=== PATIENT | female | born 1995 | race Two or more races ===

== ENCOUNTER 2016-11-01 09:43 | Emergency (ER) | payer BC, MEDICAID ==
[~2016-11-01] VITALS: Ht 165.1 cm; Wt 102.1 kg
[~2016-11-01 09:43] MED LIST: CATAPRES0.1 MG ORAL; CIPRO500 MG PO; CONCERTA18 MG PO; RISPERDAL1 MG PO; SERTRALINE HCL50 MG ORAL
[2016-11-01 10:09] VITALS: BP 124/87
[2016-11-01] MEDS ORDERED: Lidocaine 1% MPF 10mg/ml 5ml ONE (10:51)
[2016-11-01] MEDS ORDERED: Lidocaine 1% 10mg/ml/Epi 0.005mg/ml 30ml vial INJ ONE (10:56)
--- NOTE | 2016-11-01 10:57 | Emergency Room Report ---
History of Present Illness General Chief Complaint: Skin Rash/Abscess Source: Patient Present Illness HPI 21YOF with ~1 week pain to inter-gluteal area, thinks she has an abscess. Had pain there previously, self-resolved. No previous abscesses. No history of DM. No fever/chills, pus drainage. Allergies: Coded Allergies: No Known Allergies (Unverified , 11/01/16) Patient History Past Medical History: none Past Surgical History: none Pertinent Family History: none Social History: Denies: alcohol use, drug use, smoking Last Menstrual Period: 10/18/16 Now: No Immunizations: UTD Reviewed Nursing Documentation: PMH: Agreed, PSxH: Agreed Nursing Documentation-PMH Hx Gastrointestinal Problems: Yes - GERD Review of Systems All Other Systems: negative except mentioned in HPI Physical Exam Vital Signs Date Time Temp Pulse Resp B/P Pulse Ox O2 Delivery O2 Flow Rate FiO2 11/01/16 09:50 97.0 92 16 124/87 98 Room Air Sp02 EP Interpretation: reviewed, normal General Appearance: normal inspection, well appearing, no apparent distress, alert, obese Head: atraumatic ENT: normal ENT inspection, hearing grossly normal, normal voice Neck: normal inspection, full range of motion, supple, no bony tend Respiratory: normal inspection, lungs clear, normal breath sounds, no respiratory distress, no retraction, no wheezing Cardiovascular #1: regular rate, rhythm, no edema Gastrointestinal: normal inspection, normal bowel sounds, non tender, soft, no guarding, no hernia Genitourinary: no CVA tenderness Musculoskeletal: normal inspection, back normal, normal range of motion, Jeremiah' s Sign negative Neurologic: normal inspection, alert, oriented x3, responsive, automotive parts interpreter III-XII nml as tested, motor strength/tone normal, speech normal Skin: normal inspection, normal color, other - 4cm fluctuance right inter- gluteal fold superior region Procedures Incision and Drainage Incision and Drainage : Consent: Verbal Blade Size: 11 I & D Procedure: betadine prep, sterile drapes applied, sterile dressing applied, gauze wick placed Wound Location: other - buttock Wound's Depth, Shape: superficial Wound Explored: clean Anesthesia: Lidocaine w/ Epi Splint Applied?: No Sling Applied?: No Patient Tolerated: Well Complications: None Progress significant 20cc drainage of foul-smelling purulent abscess packing placed Pressure bandage placed Medical Decision Making Diagnostic Impression: Primary Impression: Abscess ER Course S/p I&D in ED with packing No comorbidity so Abx unecessary Advised f/up in 2 days for packing removal DC home with analgesia Last Vital Signs Date Time Temp Pulse Resp B/P Pulse Ox O2 Delivery O2 Flow Rate FiO2 11/01/16 10:09 97.0 71 16 124/87 98 Room Air Status: improved Disposition: HOME, SELF-CARE Scripts Acetaminophen With Codeine (T#3) (TYLENOL #3 TAB*) Y Tab 1 TAB ORAL Q8H Y for For Pain for 7 Days, #20 TAB Prov: DEVON RHODES M.D. 11/01/16 Referrals: [facility],REFERRING (PCP) DEVON RHODES M.D. Nov 01, 2016 10:57
[2016-11-01] MEDS ORDERED: ACETAMINOPHEN-1 EAC1 ORAL (10:58)
[2016-11-01] MEDS ORDERED: Lidocaine 1% 10mg/ml/EPI 0.01mg/ml 50ml INJ ONE (11:00)
[2016-11-01] MEDS ORDERED: Oxycodone/Acetaminophen 5-325 ORAL ONE (11:00)
[2016-11-01 12:39] VITALS: BP 129/85
== END 2016-11-01 12:39 | disposition home or self-care (01) ==
LOC: EMR 10:32
DX: L02.212 Cutaneous abscess of back [any part, except buttock and flank] (principal); K21.9 Gastro-esophageal reflux disease without esophagitis
CPT/HCPCS: 10060

== ENCOUNTER 2016-11-03 11:15 | Emergency (ER) | payer MEDICAID ==
[~2016-11-03] VITALS: Ht 165.1 cm; Wt 102.1 kg
[~2016-11-03 11:15] MED LIST changes: +ACETAMINOPHEN-1 EAC1 ORAL
[2016-11-03 11:19] VITALS: BP 118/71
--- NOTE | 2016-11-03 11:50 | Emergency Room Report ---
History of Present Illness General Chief Complaint: Wound Recheck/Suture Removal Source: Patient Present Illness HPI Patient returns after I and D 11/02 gluteal area. No fevers. Pain decreased. Some drainage on dressing. Not on antibiotics. Allergies: Coded Allergies: No Known Allergies (Unverified , 11/01/16) Patient History Past Medical History: see triage record Social History Narrative Mom helping to change dressing Now: No Reviewed Nursing Documentation: PMH: Agreed, PSxH: Agreed Nursing Documentation-PMH Hx Gastrointestinal Problems: Yes - GERD Review of Systems Constitutional: Reports: see HPI Musculoskeletal: Denies: back pain, joint pain, muscle pain Skin: Reports: see HPI Neurological: Denies: numbness Physical Exam Vital Signs Date Time Temp Pulse Resp B/P Pulse Ox O2 Delivery O2 Flow Rate FiO2 11/03/16 11:19 98.4 86 20 118/71 100 Room Air Sp02 EP Interpretation: reviewed, normal General Appearance: well appearing, no apparent distress Head: normocephalic, atraumatic Eyes: bilateral eye PERRL, bilateral eye normal inspection ENT: hearing grossly normal, normal voice, moist mucus membranes Neck: full range of motion, supple Respiratory: no respiratory distress, speaking full sentences Musculoskeletal: back normal, digits/nails normal, gait/station normal, normal range of motion Neurologic: alert, normal gait, grossly normal Psychiatric: mood/affect normal Skin: other - abscess without erythema. Some pus on wick. Procedures Additional Procedure Procedure Narrative Betadiene cleaned. Wick removed. Replaced with second wick. Tolerated well. Medical Decision Making Diagnostic Impression: Primary Impression: Encounter for wound re-check Additional Impression: Drain replacement gluteal abscess ER Course Patient post I and D 11/02. No evidence of cellulitis. Here for re-eval. Wick replaced. Tolerated well. Patient stable for outpatient observation and treatment. Last Vital Signs Date Time Temp Pulse Resp B/P Pulse Ox O2 Delivery O2 Flow Rate FiO2 11/03/16 12:03 98.4 86 20 118/71 100 Room Air Status: improved Disposition: HOME, SELF-CARE Condition: Improved Scripts Bacitracin (Bacitracin) 28.4 Gm Oint...g. 1 APPLIC TOPIC BID, #10 GM Prov: Brandon Arambula M.D. 11/03/16 Referrals: [facility],REFERRING (PCP) Brandon Aarmbula M.D. 27, 2017 11:50
[2016-11-03] MEDS ORDERED: BACITRACIN15 GM TOPIC (11:51)
[2016-11-03 12:03] VITALS: BP 118/71
== END 2016-11-03 12:05 | disposition home or self-care (01) ==
LOC: EMR 11:40
DX: L02.31 Cutaneous abscess of buttock (principal); Z48.03 Encounter for change or removal of drains
CPT/HCPCS: 99282

== ENCOUNTER 2016-11-05 14:53 | Emergency (ER) | payer MEDICAID ==
[~2016-11-05] VITALS: Ht 162.6 cm; Wt 102.1 kg
[~2016-11-05 14:53] MED LIST changes: +BACITRACIN15 GM TOPIC
[2016-11-05 15:03] VITALS: BP 113/77
[2016-11-05 16:00] VITALS: BP 113/77
--- NOTE | 2016-11-05 22:30 | Emergency Room Report ---
History of Present Illness General Chief Complaint: General Complaint Source: Patient Present Illness HPI Pt was triaged and placed into waiting room. Pt. then left prior to being brought back into the Emergency department or seen by a provider. Allergies: Coded Allergies: No Known Allergies (Unverified , 11/01/16) Patient History Last Menstrual Period: 10/12/16 Now: No Nursing Documentation-[facility] Past Medical History: No History, Except For Hx Gastrointestinal Problems: Yes - GERD Physical Exam Vital Signs Date Time Temp Pulse Resp B/P Pulse Ox O2 Delivery O2 Flow Rate FiO2 11/05/16 15:03 98.1 73 18 113/77 100 Room Air Medical Decision Making PA Attestation Dr. Rodrigues is my supervising Physician whom patient management has been discussed with. Diagnostic Impression: Primary Impression: LWBS ER Course Pt was triaged and placed into waiting room. Pt. then left prior to being brought back into the Emergency department or seen by a provider. Last Vital Signs Date Time Temp Pulse Resp B/P Pulse Ox O2 Delivery O2 Flow Rate FiO2 11/05/16 16:00 98.1 73 18 113/77 100 Room Air Disposition: LEFT W/OUT BEING SEEN Condition: Unknown Referrals: [facility],REFERRING (PCP) Lazara Pruitt Nov 05, 2016 22:30
== END 2016-11-05 16:05 | disposition left against medical advice (07) ==
LOC: EMR 16:05
DX: Z48.00 Encounter for change or removal of nonsurgical wound dressing (principal); Z53.21 Procedure and treatment not carried out due to patient leaving prior to being seen by health care provider
CPT/HCPCS: 99281

== ENCOUNTER 2016-11-29 09:15 | Emergency (ER) | payer MEDICAID ==
[~2016-11-29] VITALS: Ht 165.1 cm; Wt 104.3 kg
[2016-11-29 09:20] VITALS: BP 106/77
[2016-11-29] MEDS ORDERED: NKM (09:25)
[2016-11-29] MEDS ORDERED: Oxycodone/Acetaminophen 5-325 ORAL ONE ×2 (09:45→10:30)
[2016-11-29] MEDS ORDERED: Lidocaine 1% 10mg/ml/EPI 0.01mg/ml 50ml INJ ONE (10:00)
[2016-11-29] MEDS ORDERED: Lidocaine 1% MPF 10mg/ml 5ml ONE (10:01)
[2016-11-29] MEDS ORDERED: Lidocaine 1% 10mg/ml/Epi 0.005mg/ml 30ml vial INJ ONE (10:03)
[2016-11-29] MEDS ORDERED: ACETAMINOPHEN-1 EAC1 ORAL (11:11)
[2016-11-29] MEDS ORDERED: KEFLEX500 MG ORAL (11:11)
[2016-11-29 11:18] VITALS: BP 106/77
--- NOTE | 2016-11-29 11:23 | Emergency Room Report ---
History of Present Illness General Chief Complaint: Skin Rash/Abscess Source: Patient Present Illness HPI 21YOF [employer] patient with recurrent right/mid cleft "abscess." I did I&D of large amount of pus here ~1month prior Completed Abx at home Didnt followup with PMD or general surgeon d/t insurance issue Recurrent abscess for 2 days, "broke open." Denies fever/chills Allergies: Coded Allergies: No Known Allergies (Unverified , 11/01/16) Patient History Past Medical History: none Past Surgical History: none Pertinent Family History: none Social History: Denies: alcohol use, drug use, smoking Last Menstrual Period: Two weeks ago Now: No Immunizations: UTD Reviewed Nursing Documentation: PMH: Agreed, PSxH: Agreed Nursing Documentation-PMH Past Medical History Deferred: Patient Unconscious Hx Gastrointestinal Problems: Yes - GERD History Of Psychiatric Problem: Yes - Bipolar; depression Review of Systems All Other Systems: negative except mentioned in HPI Physical Exam Vital Signs Date Time Temp Pulse Resp B/P Pulse Ox O2 Delivery O2 Flow Rate FiO2 11/29/16 09:20 97.9 103 18 106/77 99 Room Air Sp02 EP Interpretation: reviewed, normal General Appearance: normal inspection, well appearing, no apparent distress, alert Head: atraumatic ENT: normal ENT inspection, hearing grossly normal, normal voice Neck: normal inspection, full range of motion, supple, no bony tend Respiratory: normal inspection, lungs clear, normal breath sounds, no respiratory distress, no retraction, no wheezing Cardiovascular #1: regular rate, rhythm, no edema Gastrointestinal: normal inspection, normal bowel sounds, non tender, soft, no guarding, no hernia Genitourinary: no CVA tenderness Musculoskeletal: normal inspection, back normal, normal range of motion, Jeremiah' s Sign negative Neurologic: normal inspection, alert, responsive, speech normal Skin: other - right mid cleft: blood draining from likely cyst. No pus. No erythema. Significant ttp Procedures Incision and Drainage Incision and Drainage : Consent: Verbal Blade Size: 11 I & D Procedure: betadine prep, sterile drapes applied, sterile dressing applied, gauze wick placed Wound Location: other - Right mid cleft/buttock Wound's Depth, Shape: superficial Wound Explored: clean Anesthesia: Lidocaine w/ Epi Splint Applied?: No Sling Applied?: No Patient Tolerated: Well Complications: None Progress I&D of 2cm right mid cleft cyst vs abscess Medical Decision Making Diagnostic Impression: Primary Impression: Pilonidal cyst with abscess Additional Impression: Pilonidal cyst ER Course Likely pilonidal cyst given recurrence No pus seen in ED ? drained out already Extended opening but no additional pus expressed. Unable to remove tissue/cyst despite local anasthesia and PO analgesia Will give Keflex Strongly advised GenSurg followup for cyst removal Last Vital Signs Date Time Temp Pulse Resp B/P Pulse Ox O2 Delivery O2 Flow Rate FiO2 11/29/16 09:20 97.9 103 18 106/77 99 Room Air Disposition: HOME, SELF-CARE Condition: Improved Scripts Acetaminophen With Codeine (T#3) (TYLENOL #3 TAB*) Y Tab 1 TAB ORAL Q8H Y for For Pain for 7 Days, #20 TAB Prov: DEVON RHODES M.D. 11/29/16 Cephalexin* (KEFLEX*) 500 Mg Capsule 500 MG ORAL Q6H for 7 Days, #28 CAP 0 Refills Prov: DEVON RHODES M.D. 11/29/16 Patient Instructions: Incision and Drainage of a Pilonidal Cyst, Care After Additional Instructions: - Take ALL antibiotics until finished - Follow up with general surgeon for cyst removal - Take pain medication as needed DEVON RHODES M.D. Nov 29, 2016 11:23
== END 2016-11-29 11:18 | disposition home or self-care (01) ==
LOC: EMR 09:30
DX: L05.01 Pilonidal cyst with abscess (principal); K21.9 Gastro-esophageal reflux disease without esophagitis; F31.9 Bipolar disorder, unspecified
CPT/HCPCS: 10060

== ENCOUNTER 2016-12-23 20:40 | Emergency (ER) | payer MEDICAID ==
[~2016-12-23] VITALS: Ht 162.6 cm; Wt 104.3 kg
[~2016-12-23 20:40] MED LIST changes: +KEFLEX500 MG ORAL; +NKM
[2016-12-23] MEDS ORDERED: NKM (20:59)
--- NOTE | 2016-12-23 21:09 | Emergency Room Report ---
History of Present Illness General Chief Complaint: Female Urogenital Problems Source: Patient Present Illness HPI The patient presents with dysuria. Started yesterday. She reports 6/10 pain. No hematuria. She took some uroostat and her urine as turned orange and it's freaking her out. She's had bladder infections before. Her last period was 2 weeks ago. No fever, back pain, NVD, URI sy, cough. 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 Last Menstrual Period: 12/08/16 Now: No : 0 Para: 0 Reviewed Nursing Documentation: PMH: Agreed, PSxH: Agreed Nursing Documentation-PMH Past Medical History: No Stated History Hx Gastrointestinal Problems: Yes - GERD Review of Systems All Other Systems: negative except mentioned in HPI Physical Exam Vital Signs Date Time Temp Pulse Resp B/P Pulse Ox O2 Delivery O2 Flow Rate FiO2 12/23/16 20:56 98.1 95 14 142/81 98 Room Air Sp02 EP Interpretation: reviewed, normal General Appearance: well appearing, no apparent distress Head: normocephalic, atraumatic Eyes: bilateral eye PERRL, bilateral eye normal inspection ENT: hearing grossly normal, normal voice Neck: full range of motion, supple Respiratory: no respiratory distress, speaking full sentences Gastrointestinal: normal inspection, non tender Genitourinary: no CVA tenderness Musculoskeletal: no calf tenderness Neurologic: alert, normal gait, grossly normal Psychiatric: mood/affect normal Skin: no rash Medical Decision Making Diagnostic Impression: Primary Impression: UTI ER Course Patient has dysuria with a history of UTIs. Differential includes UTI, vaginitis, Tylenol. Exam is against pyonephritis. Urinalysis we sent along with urine . UA with pyuria. Macrobid begun. Patient stable for outpatient observation and treatment. Laboratory Tests Test 12/23/16 21:00 Urine Color [place] Urine Appearance Slightly cloudy Urine pH 6 (4.5-8.0) Urine Specific [place] 1.020 (1.005-1.035) Urine Protein 3+ (NEGATIVE) H Urine Glucose (UA) Negative (NEGATIVE) Urine Ketones Negative (NEGATIVE) Urine Occult Blood 4+ (NEGATIVE) H Urine Nitrite Positive (NEGATIVE) H Urine Bilirubin 3+ (NEGATIVE) H Urine Ictotest Negative Urine Urobilinogen 8 MG/DL (0.0-1.0) H Urine Leukocyte Esterase 2+ (NEGATIVE) H Urine RBC Tntc /HPF (0 - 2) H Urine WBC 15-20 /HPF (0 - 2) H Urine Squamous Epithelial Cells Occasional /LPF Urine Bacteria Many /HPF (NONE) H Urine HCG, Qualitative Negative Last Vital Signs Date Time Temp Pulse Resp B/P Pulse Ox O2 Delivery O2 Flow Rate FiO2 12/23/16 22:34 98.1 14 142/81 98 Room Air 12/23/16 20:56 95 Status: improved Disposition: HOME, SELF-CARE Condition: Improved Scripts Phenazopyridine Hcl* (PYRIDIUM*) 100 Mg Tablet 100 MG ORAL THREE TIMES A DAY, #9 TAB Prov: Brandon Arambula M.D. 12/23/16 Nitrofurantoin Monohyd/M-Cryst* (MACROBID 100 MG*) 100 Mg Capsule 100 MG ORAL EVERY 12 HOURS, #14 CAP Prov: Brandon Arambula M.D. 12/23/16 Brandon Arambula M.D. Dec 23, 2016 21:09
[2016-12-23 21:18] LABS: APPEARANCE,URINE SLIGHTLY CLOUDY; KETONES,URINE NEGATIVE (NEGATIVE); LEUKOCYTE ESTERASE ,URINE 2+ (NEGATIVE); NITRITE,URINE POSITIVE (NEGATIVE); PH,URINE 6 (4.5-8.0); PROTEIN,URINE 3+ (NEGATIVE); UROBILINOGEN,URINE 8 MG/DL (0.0-1.0)
[2016-12-23 21:26] LABS: ICTOTEST NEGATIVE
[2016-12-23 21:27] LABS: RBC,URINE TNTC /HPF (0 - 2)
[2016-12-23 21:28] LABS: BACTERIA,URINE MANY /HPF; SQUAMOUS EPITHELIAL CELL,UR OCCASIONAL /LPF (NONE/OCC); WBC,URINE 15-20 /HPF (0 - 2)
[2016-12-23] MEDS ORDERED: PHENAZOPYRIDIN100 MG ORAL (22:11)
[2016-12-23] MEDS ORDERED: NITROFURANTOIN100 M2 ORAL (22:11)
[2016-12-23 22:34] VITALS: BP 142/81
== END 2016-12-23 22:36 | disposition home or self-care (01) ==
LOC: EMR 21:16
DX: N39.0 Urinary tract infection, site not specified (principal); F17.200 Nicotine dependence, unspecified, uncomplicated; K21.9 Gastro-esophageal reflux disease without esophagitis
CPT/HCPCS: 81003; 81025; 87086; 87181; 99284

== ENCOUNTER 2017-06-22 12:53 | Emergency (ER) | payer MEDICAID ==
[~2017-06-22] VITALS: Ht 165.1 cm; Wt 99.8 kg
[~2017-06-22 12:53] MED LIST changes: +NITROFURANTOIN100 M2 ORAL; +PHENAZOPYRIDIN100 MG ORAL
--- NOTE | 2017-06-22 13:30 | Emergency Room Report ---
History of Present Illness General Chief Complaint: Skin Rash/Abscess Source: Patient Present Illness HPI 22-year-old female presents to the emergency department complaining of 8/10 in severity localized pain with associated swelling, tenderness and erythema to the gluteal cleft area progressive x3 days. Patient reports previous history of abscess to require drainage on 2 previous occasions. Patient states she has follow up appointment with the surgeon who stated that recovery time is long and patient deferred her surgery. Patient denies fevers, chills, constipation, diarrhea. She denies malodorous discharge. Denies . Denies CP, Palpitations, LOC, AMS, dizziness, Changes in Vision, Sensation, paresthesias, or a sudden severe headache. Denies trauma or fall. Allergies: Coded Allergies: No Known Allergies (Unverified , 11/01/16) Patient History Past Medical History: see triage record Past Surgical History: none Pertinent Family History: none Last Menstrual Period: Two weeks ago Now: No Immunizations: UTD Reviewed Nursing Documentation: PMH: Agreed, PSxH: Agreed Nursing Documentation-PMH Past Medical History: No Stated History Hx Gastrointestinal Problems: Yes - GERD Review of Systems All Other Systems: negative except mentioned in HPI Physical Exam Vital Signs Date Time Temp Pulse Resp B/P (MAP) Pulse Ox O2 Delivery O2 Flow Rate FiO2 06/22/17 12:57 98.1 90 16 121/78 96 Room Air 98.1 Sp02 EP Interpretation: reviewed, normal General Appearance: no apparent distress, alert, GCS 15, non-toxic Head: normocephalic, atraumatic ENT: hearing grossly normal, normal voice Neck: full range of motion Respiratory: lungs clear, normal breath sounds, speaking full sentences Cardiovascular #1: regular rate, rhythm Gastrointestinal: non tender, soft Rectal: other - Right sided gluteal cleft abscess approximately 1cm in diameter , mild erythema at this time, no palpable fluctuance. Musculoskeletal: back normal, gait/station normal, normal range of motion, non- tender Neurologic: alert, oriented x3, responsive, motor strength/tone normal, sensory intact, speech normal, grossly normal Psychiatric: judgement/insight normal Skin: no rash, warm/dry, well hydrated, other - mild/faint erythema, darkened discoloration and previous incision scars noted to area of tenderness on the right gluteal cleft. Medical Decision Making PA Attestation Dr. Cunningham is my supervising Physician whom patient management has been discussed with. Diagnostic Impression: Primary Impression: Pilonidal cyst ER Course 22-year-old female presents to the emergency department complaining of 8/10 in severity localized pain with associated swelling, tenderness and erythema to the gluteal cleft area progressive x3 days. Patient reports previous history of abscess to require drainage on 2 previous occasions. Patient states she has follow up appointment with the surgeon who stated that recovery time is long and patient deferred her surgery. Patient denies fevers, chills, constipation, diarrhea. She denies malodorous discharge. Denies . Denies CP, Palpitations, LOC, AMS, dizziness, Changes in Vision, Sensation, paresthesias, or a sudden severe headache. Denies trauma or fall. Ddx considered but are not limited to cellulitis, abscess, cystic acne, necrotizing fasciitis, insect bite, pilonidal abscess/ fistula just to name a few. Vital signs: are WNL, pt. is afebrile H&PE are most consistent with Right sided gluteal cleft abscess approximately 1cm in diameter, mild erythema at this time, no palpable fluctuance. ORDERS: none required at this time, the diagnosis is clinical ED INTERVENTIONS: - I & D was recommended, however pt. declines and states last time she had procedure she was in a lot of pain, and is reluctant to have recommended I & D performed. She requests oral abx and pain control as first attempt of treatment. d/w pt. the importance of follow up and proper removal of pilonidal as this will be a recurring problem unless properly treated. DISCHARGE: At this time pt. is stable for d/c to home. Will provide printed patient care instructions, and any necessary prescriptions. Care plan and follow up instructions have been discussed with the patient prior to discharge. Last Vital Signs Date Time Temp Pulse Resp B/P (MAP) Pulse Ox O2 Delivery O2 Flow Rate FiO2 06/22/17 12:57 98.1 90 16 121/78 96 Room Air 98.1 Disposition: HOME, SELF-CARE Condition: Stable Scripts Lidocaine HCL 2% Jelly* (Lidocaine Jelly 2%*) 5 Ml Jel.pf.brenda 1 APPLIC TOPIC DAILY, #5 ML Prov: Lazara Pruitt P.A. 06/22/17 Ibuprofen* (MOTRIN*) 600 Mg Tablet 600 MG ORAL THREE TIMES A DAY, #30 TAB 0 Refills Prov: Lazara Pruitt 06/22/17 Tramadol Hcl* (ULTRAM*) 50 Mg Tablet 50 MG ORAL Q8HR Y for For Pain, #9 TAB 0 Refills Prov: Lazara Pruitt 06/22/17 Amoxicillin/Potassium Clav 500-125 Tablet* (AUGMENTIN 500-125 TABLET*) 1 Each Tablet 1 TAB ORAL THREE TIMES A DAY for 7 Days, #14 TAB Prov: Lazara Pruitt 06/22/17 Departure Forms: Return to Work Return to Work Date: Jun 26, 2017 Work Restrictions: None Return to Full Activity: Jun 26, 2017 Patient Instructions: Abscess, Pilonidal Cyst Additional Instructions: Take medications as directed. Proper followup and treatment of her condition is highly recommended to avoid recurrence of your symptoms. Follow up with a Primary Care Provider in 3-5 days, even if your symptoms have resolved. --Please review list of primary care clinics, if you do not already have a primary care provider Return sooner to ED if new symptoms occur, or current symptoms become worse. Do not drink alcohol, drive, or operate heavy machinery while taking Tramadol as this may cause drowsiness. - Please note that this Emergency Department Report was dictated using [employer] laborer technology software, occasionally this can lead to erroneous entry secondary to interpretation by the dictation equipment. Lazara Pruitt Jun 22, 2017 13:30
[2017-06-22] MEDS ORDERED: TRAMADOL HCL50 MG ORAL (13:34)
[2017-06-22] MEDS ORDERED: AUGMENTIN 500-1 EACH ORAL (13:34)
[2017-06-22] MEDS ORDERED: LD2JL30 TOPIC (13:34)
[2017-06-22] MEDS ORDERED: IBUPROFEN600 MG ORAL (13:34)
[2017-06-22 13:46] VITALS: BP 118/71
== END 2017-06-22 13:48 | disposition home or self-care (01) ==
LOC: EMR 13:30
DX: L05.01 Pilonidal cyst with abscess (principal); K21.9 Gastro-esophageal reflux disease without esophagitis
CPT/HCPCS: 10060; 99283

== ENCOUNTER 2017-06-24 22:00 | Emergency (ER) | payer MEDICAID ==
[~2017-06-24] VITALS: Ht 165.1 cm; Wt 99.8 kg
[~2017-06-24 22:00] MED LIST changes: +AUGMENTIN 500-1 EACH ORAL; +IBUPROFEN600 MG ORAL; +LD2JL30 TOPIC; +TRAMADOL HCL50 MG ORAL
[2017-06-24 22:30] VITALS: BP 123/75
[2017-06-24] MEDS ORDERED: Cephalexin 500mg cap ORAL ONE (22:45)
[2017-06-24] MEDS ORDERED: Norco 5mg/325mg tab ORAL ONE (22:45)
[2017-06-24] MEDS ORDERED: Bactrim-DS 1 tab ORAL ONE (22:45)
[2017-06-25] MEDS ORDERED: Lidocaine 1% Plain 30 ml INJ ONE
[2017-06-25] MEDS ORDERED: BACTRIM DS TAB1 EAC1 ORAL (00:23)
[2017-06-25] MEDS ORDERED: NORCO 5-325 TA1 EACH ORAL (00:23)
[2017-06-25] MEDS ORDERED: KEFLEX500 MG ORAL (00:23)
--- NOTE | 2017-06-25 02:22 | Emergency Room Report ---
History of Present Illness General Chief Complaint: Skin Rash/Abscess Source: Patient Present Illness HPI 22-year-old female presents ED for evaluation. Patient notes she has a pilonidal abscess on her right buttock times one week. Was seen here last week for similar presentation. Patient was offered option for I&D but declined. Patient was discharged on antibiotics but states it did not help. He is here with increased pain, throbbing, 8/10, nonradiating. Fevers or chills. Patient states she's had previous pilonidal abscess that required drainage. Patient states she was referred to a surgeon but has not seen a surgeon yet. No other aggravating relieving factors. Denies any other associated symptoms Allergies: Coded Allergies: No Known Allergies (Unverified , 11/01/16) Patient History Past Medical History: GERD Past Surgical History: none Pertinent Family History: none Social History: Denies: smoking, alcohol use, drug use Last Menstrual Period: 2 weeks ago Now: No : 0 Immunizations: UTD Reviewed Nursing Documentation: PMH: Agreed, PSxH: Agreed Nursing Documentation-PMH Hx Gastrointestinal Problems: Yes - GERD Review of Systems All Other Systems: negative except mentioned in HPI Physical Exam Vital Signs Date Time Temp Pulse Resp B/P (MAP) Pulse Ox O2 Delivery O2 Flow Rate FiO2 18 22:10 98.6 128 18 123/75 99 Room Air 98.6 Sp02 EP Interpretation: reviewed, normal General Appearance: no apparent distress, alert, GCS 15, non-toxic, mild distress, obese Head: normocephalic Eyes: bilateral eye normal inspection, bilateral eye PERRL ENT: normal ENT inspection Neck: normal inspection Respiratory: normal inspection Cardiovascular #1: normal inspection Gastrointestinal: normal inspection Rectal: deferred Genitourinary: no CVA tenderness Musculoskeletal: normal inspection Neurologic: alert, oriented x3, responsive, motor strength/tone normal, sensory intact, speech normal Psychiatric: judgement/insight normal, memory normal, no suicidal/homicidal ideation, anxious Skin: other - abscess R buttock. fluctuant. surrounding induration/erythema Lymphatic: normal inspection Procedures Incision and Drainage Incision and Drainage : Consent: Verbal Blade Size: 11 I & D Procedure: betadine prep, sterile drapes applied, sterile dressing applied Wound Location: other - R buttock Wound's Depth, Shape: other - abscess Wound Explored: purulent material expressed Anesthesia: 1% Lidocaine Splint Applied?: No Sling Applied?: No Patient Tolerated: Well Complications: None Medical Decision Making Diagnostic Impression: Primary Impression: Pilonidal cyst with abscess ER Course Hospital Course 22-year-old female presents ED with pilonidal abscess to the right buttock Clinical course Patient placed on stretcher. After initial history and physical I ordered pain medications + antibiotics I reviewed EMR; patient was seen here recently and declined drainage. Patient was discharged on Augmentin Patient ultimately agreed to drainage today. Anesthetized with lidocaine. incision and drainage performed with purulent material expressed. On reassessment patient states pain has improved and she feels better given referral to surgery Diagnosis - pilondial cyst with abscess Stable and discharged to home with prescription for [place], Bactrim, Keflex. wound Care instructions given. Followup with PMD. Return to ED if any signs of infection develop Last Vital Signs Date Time Temp Pulse Resp B/P (MAP) Pulse Ox O2 Delivery O2 Flow Rate FiO2 06/24/17 22:30 98.6 18 123/75 99 Room Air 98.6 06/24/17 22:10 128 Status: improved Disposition: HOME, SELF-CARE Condition: Stable Scripts Hydrocodone Bit/Acetaminophen 5-325* (NORCO 5-325*) 1 Each Tablet 1 TAB ORAL Q6H Y for For Pain, #10 TAB 0 Refills Prov: SOHA GALLEGO M.D. 06/25/17 Trimethoprim/Sulfamethoxazole 160/800* (BACTRIM DS TABLET*) 1 Each Tablet 1 TAB ORAL Q12H, #14 TAB 0 Refills Prov: SOHA GALLEGO M.D. 06/25/17 Cephalexin* (KEFLEX*) 500 Mg Capsule 500 MG ORAL Q6H, #28 CAP 0 Refills Prov: SOHA GALLEGO M.D. 06/25/17 Referrals: Alexis Lujan Patient Instructions: Incision and Drainage of a Pilonidal Cyst, Care After SOHA GALLEGO M.D. Jun 25, 2017 02:22
[2017-06-25 04:14] VITALS: BP 123/75
== END 2017-06-25 00:30 | disposition home or self-care (01) ==
LOC: EMR 22:34
DX: L05.01 Pilonidal cyst with abscess (principal); K21.9 Gastro-esophageal reflux disease without esophagitis
CPT/HCPCS: 10060; 99284; J2001

== ENCOUNTER 2017-10-27 19:01 | Emergency (ER) | payer MEDICAID ==
[~2017-10-27] VITALS: Ht 162.6 cm; Wt 108.4 kg
[~2017-10-27 19:01] MED LIST changes: +BACTRIM DS TAB1 EAC1 ORAL; +NORCO 5-325 TA1 EACH ORAL
[2017-10-27] MEDS ORDERED: Norco 5mg/325mg tab ORAL ONE (19:45)
[2017-10-27 20:00] VITALS: BP 122/61
[2017-10-27] MEDS ORDERED: CEPHALEXIN500 MG ORAL (20:49)
[2017-10-27] MEDS ORDERED: BACTRIM DS TAB1 EAC1 ORAL (20:49)
[2017-10-27] MEDS ORDERED: NORCO 5-325 TA1 EACH ORAL (20:49)
[2017-10-27 20:55] VITALS: BP 122/61
--- NOTE | 2017-10-27 22:03 | Emergency Room Report ---
History of Present Illness General Chief Complaint: Skin Rash/Abscess Source: Patient Present Illness HPI 22-year-old female presents ED complaining of a infected cyst on her buttock. Has been there for the last 2 days. Pain is throbbing, 6 out of 10, nonradiating. Denies fevers or chills. States that she's had these many times in the past. Has required drainage. No other aggravating relieving factors. Denies any other associated symptoms Allergies: Coded Allergies: No Known Allergies (Unverified , 10/27/17) Patient History Past Medical History: GERD Past Surgical History: none Pertinent Family History: none Social History: Denies: smoking, alcohol use, drug use Now: No Immunizations: UTD Reviewed Nursing Documentation: PMH: Agreed; PSxH: Agreed Nursing Documentation-PMH Past Medical History: No Stated History Hx Gastrointestinal Problems: Yes - GERD Review of Systems All Other Systems: negative except mentioned in HPI Physical Exam Vital Signs Date Time Temp Pulse Resp B/P (MAP) Pulse Ox O2 Delivery O2 Flow Rate FiO2 10/27/17 19:10 97.3 71 18 118/57 95 Room Air 97.3 Sp02 EP Interpretation: reviewed, normal General Appearance: no apparent distress, alert, GCS 15, non-toxic Head: normocephalic Eyes: bilateral eye normal inspection, bilateral eye PERRL ENT: normal ENT inspection Neck: normal inspection Respiratory: normal inspection Cardiovascular #1: normal inspection Gastrointestinal: normal inspection Rectal: deferred Genitourinary: no CVA tenderness Musculoskeletal: normal inspection Neurologic: alert, oriented x3, responsive, motor strength/tone normal, sensory intact, speech normal Psychiatric: judgement/insight normal, memory normal, mood/affect normal, no suicidal/homicidal ideation Skin: other - pilonidal cyst on R upper buttock. fluctuant. no surrounding induration/erythema Lymphatic: normal inspection Medical Decision Making Diagnostic Impression: Primary Impression: Pilonidal cyst with abscess ER Course Hospital Course 22-year-old female presents to ED with pain/swelling to R buttock Differential diagnoses include: Cellulitis, dermatitis, insect bite, abscess Clinical course Patient placed on stretcher. After initial history, physical exam reveals a young female in no acute distress. On exam there is a pilonidal cyst noted to right upper buttock. With Fluctuance. No surrounding erythema or induration I discussed findings with the patient. I offered to perform I and D and then start patient on antibiotics. Patient initially agreed and then became very anxious and did not want the I and D as she notes it is very painful in the past. Explained to the patient that she can attempt conservative therapy with warm compresses and antibiotics but this may ultimately the I and D. I also explained that with frequent recurrence patient will need surgical intervention to take care of the underlying issue. I will provide her with surgical referral Diagnosis - pilonidal cyst with abscess stable and discharged to home with prescription for Keflex, Bactrim, [place]. Sitz baths. Instructed to followup with Surgery. Instructed return to ED if symptoms recur or worsen Last Vital Signs Date Time Temp Pulse Resp B/P (MAP) Pulse Ox O2 Delivery O2 Flow Rate FiO2 10/27/17 20:55 97.3 88 18 122/61 95 Room Air 97.3 Status: improved Disposition: HOME, SELF-CARE Condition: Stable Scripts Hydrocodone Bit/Acetaminophen 5-325* (NORCO 5-325*) 1 Each Tablet 1 TAB ORAL Q6H PRN for For Pain, #10 TAB 0 Refills Prov: Ortega Marino MD 10/27/17 Trimethoprim/Sulfamethoxazole 160/800* (BACTRIM DS TABLET*) 1 Each Tablet 1 TAB ORAL Q12H, #14 TAB 0 Refills Prov: Ortega Marino MD 10/27/17 Cephalexin* (KEFLEX*) 500 Mg Capsule 500 MG ORAL EVERY 6 HOURS, #28 CAP Prov: Ortega Marino MD 10/27/17 Referrals: [facility],REFERRING (PCP) Patient Instructions: Incision and Drainage of a Pilonidal Cyst, Care After Ortega Marino MD Oct 27, 2017 22:03
== END 2017-10-27 20:05 | disposition home or self-care (01) ==
LOC: EMR 19:40
DX: L05.01 Pilonidal cyst with abscess (principal); K21.9 Gastro-esophageal reflux disease without esophagitis
CPT/HCPCS: 99284

== ENCOUNTER 2018-09-08 11:19 | Emergency (ER) | payer MEDICAID ==
[~2018-09-08] VITALS: Ht 162.6 cm; Wt 95.7 kg
[~2018-09-08 11:19] MED LIST changes: +CEPHALEXIN500 MG ORAL
[2018-09-08] MEDS ORDERED: LAMICTAL100 MG ORAL (12:05)
[2018-09-08] MEDS ORDERED: LEXAPRO10 MG ORAL (12:05)
[2018-09-08 12:33] VITALS: BP 121/73
--- NOTE | 2018-09-08 12:44 | NUR ---
ED Nurse Note:ountment applied and dry dressing placed over wound
[2018-09-08] MEDS ORDERED: Tylenol #3 tab (300mg/30mg) ORAL ONE (12:45)
[2018-09-08] MEDS ORDERED: Clindamycin 150mg cap ORAL ONE (12:45)
--- NOTE | 2018-09-08 13:04 | Emergency Room Report ---
History of Present Illness General Chief Complaint: Skin Rash/Abscess Source: Medical Record Present Illness HPI 23-year-old female presents to the emergency department complaining of localized tenderness out of 10 in severity pain that has been progressive with an open wound to the lower left abdomen over the course of 5 days. Patient reports she has a history of hidradenitis that and in the past was maintaining well with application of triamcinolone cream. Patient reports that her symptoms have not responded to this technique. Patient denies fevers, chills, recent travel or ill contacts with moist symptoms. Patient reports some mild itching initially she states that there is pus draining. And redness about the 2 open sores. Pt. denies fevers, chills or swollen tender lymph nodes. Denies lesions/rashes elsewhere on the body. Denies new medications or body washes or creams. Denies swelling of the lips, tongue , throat or airway. Denies wheezing , or shortness of breath. Denies recent travel, recent illness or ill contacts. denies blisters, oral lesions, or sloughing of the skin Allergies: Coded Allergies: No Known Allergies (Unverified , 10/27/17) Patient History Past Medical History: see triage record Past Surgical History: none Pertinent Family History: none Last Menstrual Period: control implant Now: No Reviewed Nursing Documentation: PMH: Agreed; PSxH: Agreed Nursing Documentation-PMH Past Medical History: No History, Except For Hx Gastrointestinal Problems: Yes - GERD History Of Psychiatric Problem: Yes - Anxiety Review of Systems All Other Systems: negative except mentioned in HPI Physical Exam Vital Signs Date Time Temp Pulse Resp B/P (MAP) Pulse Ox O2 Delivery O2 Flow Rate FiO2 09/08/18 12:00 98.4 85 16 97 Room Air 09/08/18 12:33 121/73 Sp02 EP Interpretation: reviewed, normal General Appearance: alert, GCS 15, non-toxic, mild distress Head: normocephalic, atraumatic Eyes: bilateral eye normal inspection, bilateral eye PERRL ENT: hearing grossly normal, normal voice Neck: full range of motion Respiratory: lungs clear, normal breath sounds, speaking full sentences Cardiovascular #1: regular rate, rhythm Gastrointestinal: non tender, soft, non-distended, no guarding, other - Two ulcerated wounds on the lower left abdomen/pelvic area between and abdominal fold. surrounding erythema and warmth, there is purulent d/c oozing across the ulcerated lesions. no LAD. many scars from previous infections. Rectal: deferred Genitourinary: normal inspection Musculoskeletal: back normal, gait/station normal, normal range of motion, non- tender Neurologic: alert, oriented x3, responsive, motor strength/tone normal, sensory intact, speech normal, grossly normal Psychiatric: judgement/insight normal Skin: normal color, warm/dry, well hydrated, other - Two ulcerated wounds on the lower left abdomen/pelvic area between and abdominal fold. surrounding erythema and warmth, there is purulent d/c oozing across the ulcerated lesions. no LAD. many scars from previous infections. Lymphatic: no adenopathy Medical Decision Making PA Attestation Dr. Moody is my supervising Physician whom patient management has been discussed with. Diagnostic Impression: Primary Impression: Hidradenitis ER Course 23-year-old female presents to the emergency department complaining of localized tenderness out of 10 in severity pain that has been progressive with an open wound to the lower left abdomen over the course of 5 days. Patient reports she has a history of hidradenitis that and in the past was maintaining well with application of triamcinolone cream. Patient reports that her symptoms have not responded to this technique. Patient denies fevers, chills, recent travel or ill contacts with moist symptoms. Patient reports some mild itching initially she states that there is pus draining. And redness about the 2 open sores. Pt. denies fevers, chills or swollen tender lymph nodes. Denies lesions/rashes elsewhere on the body. Denies new medications or body washes or creams. Denies swelling of the lips, tongue , throat or airway. Denies wheezing , or shortness of breath. Denies recent travel, recent illness or ill contacts. denies blisters, oral lesions, or sloughing of the skin Ddx considered but are not limited to cellulitis, hidradenitis, necrotizing fasciitis just to name a few Vital signs: are WNL, pt. is afebrile H&PE are most consistent with ulcerative hidradenitis. ORDERS: -Wound Culture: pending. ED INTERVENTIONS: -Wound care -Clindamycin PO -I do not identify an emergent condition at this time. With current presentation , pt. is stable for close outpatient follow up and conservative treatment. D/ w pt. to return promptly to ED with worsening or new symptoms.- Pt. verbalizes' understanding and agreement with proposed treatment plan.proposed treatment plan. DISCHARGE: At this time pt. is stable for d/c to home. Will provide printed patient care instructions, and any necessary prescriptions. Care plan and follow up instructions have been discussed with the patient prior to discharge. Last Vital Signs Date Time Temp Pulse Resp B/P (MAP) Pulse Ox O2 Delivery O2 Flow Rate FiO2 09/08/18 12:33 98.4 78 16 121/73 97 Room Air Status: improved Disposition: HOME, SELF-CARE Condition: Stable Scripts Acetaminophen With Codeine (T#3) (TYLENOL #3 TAB*) Y Tab 1 TAB ORAL Q8HR PRN for For Pain, #12 TAB Prov: Lazara Pruitt 09/08/18 Mupirocin* (MUPIROCIN*) 22 Gm Oint...g. 1 APPLIC TOPIC THREE TIMES A DAY, #22 GM Prov: Lazara Pruitt 09/08/18 Clindamycin Hcl (CLINDAMYCIN HCL) 300 Mg Capsule 300 MG ORAL FOUR TIMES A DAY for 7 Days, #28 CAP Prov: Lazara Pruitt 09/08/18 Referrals: Robert Noawk MD Departure Forms: Return to Work Return to Work Date: September 13, 2018 Work Restrictions: None Return to Full Activity: September 13, 2018 Patient Instructions: Cellulitis, [id number], Hidradenitis Suppurativa Additional Instructions: Take medications as directed. Follow up with a Primary Care Provider in 3-5 days, even if your symptoms have resolved. --Please review list of primary care clinics, if you do not already have a primary care provider Return sooner to ED if new symptoms occur, or current symptoms become worse. Do not drink alcohol, drive, or operate heavy machinery while taking Tylenol # 3 as this may cause drowsiness. - Please note that this Emergency Department Report was dictated using [employer] continuous [employer] technology software, occasionally this can lead to erroneous entry secondary to interpretation by the dictation equipment. Lazara Pruitt September 08, 2018 13:04
[2018-09-08] MEDS ORDERED: ACETAMINOPHEN-1 EAC1 ORAL (13:06)
[2018-09-08] MEDS ORDERED: MUPIROCIN22 GM TOPIC (13:06)
[2018-09-08] MEDS ORDERED: CLINDAMYCIN HC300 MG ORAL (13:06)
--- NOTE | 2018-09-08 13:30 | NUR ---
ER DISCHARGE NOTE:pain meds given Patient is cleared to be discharged per ERMD, pt is aox4, on room air, with stable vital signs. pt was given dc and prescription instructions, pt was able to verbalize understanding pt is able to ambulate with steady gait. pt took all belongings.
[2018-09-08 14:55] VITALS: BP 121/73
== END 2018-09-08 13:30 | disposition home or self-care (01) ==
LOC: EMR 13:00
DX: L73.2 Hidradenitis suppurativa (principal); K21.9 Gastro-esophageal reflux disease without esophagitis; F41.9 Anxiety disorder, unspecified
CPT/HCPCS: 99282

== ENCOUNTER 2018-12-12 21:07 | Emergency (ER) | payer MEDICAID ==
[~2018-12-12] VITALS: Ht 165.1 cm; Wt 97.5 kg
[~2018-12-12 21:07] MED LIST changes: +CLINDAMYCIN HC300 MG ORAL; +LAMICTAL100 MG ORAL; +LEXAPRO10 MG ORAL; +MUPIROCIN22 GM TOPIC
[2018-12-12 21:10] VITALS: BP 125/70
--- NOTE | 2018-12-12 21:10 | NUR ---
ED Nurse Note: PT AMBUALTED TO ED C/O OF ITCHINESS/BURNING DURING URINATION FOR X 9 DAYS. PT STATES THAT SHE WAS PRESCRIBED BATRIM AND FOLLOWED UP WITH HER PRIMARY. PER PT HER PMD STATED THAT E.COLI WAS PRESENT AND SHE MAY NEED A NEW PRESCRIPTION. URINE SPECIMEN COLLECTED AND SENT TO LAB
--- NOTE | 2018-12-12 21:28 | Emergency Room Report ---
History of Present Illness General Chief Complaint: Female Urogenital Problems Source: Patient Present Illness HPI This is a 23-year-old female who presents with chief complaint of UTI symptoms. About 8 days ago she had UTI symptoms and seen at the clinic from her insurance. They diagnosed her with UTI prescribed her Bactrim. She got a call back a few days later and said that it grew out E. coli and is resistant to Bactrim. She said that they were unable to contact her doctor to change her antibiotics. Since then she says she has increasing urgency and dysuria. No nausea no vomiting. No fever chills. No back pain. Worse with urination. Allergies: Coded Allergies: No Known Allergies (Unverified , 10/27/17) Patient History Past Medical History: see triage record, old chart reviewed, psych hx Past Surgical History: none Pertinent Family History: none Social History: Denies: smoking Last Menstrual Period: unk Now: No Immunizations: other Reviewed Nursing Documentation: PMH: Agreed; PSxH: Agreed Nursing Documentation-PMH Hx Gastrointestinal Problems: Yes - GERD, UTI Review of Systems Eye: Denies: eye pain, blurred vision ENT: Denies: ear pain, nose congestion, throat swelling Respiratory: Denies: cough, shortness of breath Cardiovascular: Denies: chest pain, palpitations Gastrointestinal: Denies: abdominal pain, diarrhea, nausea, vomiting Genitourinary: Reports: dysuria, frequency, urgency Musculoskeletal: Denies: back pain, joint pain Skin: Denies: rash Neurological: Denies: headache, numbness Endocrine: Denies: increased thirst, increased urine Hematologic/Lymphatic: Denies: easy bruising All Other Systems: negative except mentioned in HPI Physical Exam Vital Signs Date Time Temp Pulse Resp B/P (MAP) Pulse Ox O2 Delivery O2 Flow Rate FiO2 12/12/18 21:09 98.2 92 18 125/70 (88) 96 Room Air Vitals normal Sp02 EP Interpretation: reviewed, normal General Appearance: well appearing, no apparent distress, alert Head: normocephalic, atraumatic Eyes: bilateral eye PERRL, bilateral eye EOMI ENT: hearing grossly normal, normal pharynx Neck: full range of motion, supple, no meningismus Respiratory: chest non-tender, lungs clear, normal breath sounds Cardiovascular #1: regular rate, rhythm, no murmur Gastrointestinal: normal bowel sounds, non tender, no mass, no organomegaly, no bruit, non-distended Musculoskeletal: back normal, gait/station normal, normal range of motion Psychiatric: mood/affect normal Medical Decision Making Diagnostic Impression: Primary Impression: UTI ER Course Patient with UTI and reported culture grew out E. coli that is resistant to Bactrim. I gave her a dose of Rocephin here. No evidence of sepsis, pyelonephritis or toxicity. Will discharge home. Last Vital Signs Date Time Temp Pulse Resp B/P (MAP) Pulse Ox O2 Delivery O2 Flow Rate FiO2 12/12/18 21:10 98.2 72 18 125/70 96 Room Air Status: improved Disposition: HOME, SELF-CARE Condition: Stable Scripts Cephalexin* (KEFLEX*) 500 Mg Capsule 500 MG ORAL TID, #21 CAP Prov: David Deleon MD 12/12/18 Patient Instructions: Urinary Tract Infection Additional Instructions: Call your doctor's office tomorrow to check to see if the antibiotic prescribed is sensitive to the urine culture. Follow-up with your doctor in a week for recheck. Return if worse. David Deleon MD Dec 12, 2018 21:28
[2018-12-12] MEDS ORDERED: cefTRIAXone 1 GM in NS 55 ML IVPB ONE (21:30)
[2018-12-12] MEDS ORDERED: CEPHALEXIN500 MG ORAL (21:32)
[2018-12-12 21:38] VITALS: BP 121/68
--- NOTE | 2018-12-12 21:39 | NUR ---
ER DISCHARGE NOTE: Patient is cleared to be discharged per ERMD, pt is aox4, on room air, with stable vital signs. pt was given dc and prescription instructions, pt was able to verbalize understanding, pt id band and iv site removed without complications. pt is able to ambulate with steady gait. pt took all belongings.
== END 2018-12-12 21:50 | disposition home or self-care (01) ==
LOC: EMR 21:47
DX: N39.0 Urinary tract infection, site not specified (principal); B96.20 Unspecified Escherichia coli [E. coli] as the cause of diseases classified elsewhere; Z16.39 Resistance to other specified antimicrobial drug; K21.9 Gastro-esophageal reflux disease without esophagitis
CPT/HCPCS: 96365; 99284; J0696